=== PATIENT | female | born 1970 | race Caucasian/White ===

== ENCOUNTER 2020-11-28 00:09 | Emergency (ER) | payer OTHER ==
[2020-11-28 00:43] VITALS: BP 153/85; PULSE 86; TEMP 98.1; BMI 26.4
[2020-11-28] MEDS ORDERED: IBUPROFEN 600 MG TABLET (FP) PO ONE ×2 (00:49→01:17)
== END 2020-11-28 01:49 | disposition home or self-care (01) ==
LOC: JER 00:09
DX: M25.562 Pain in left knee (principal)
CPT/HCPCS: 73562-TC-LT-FY; 99284-25